=== PATIENT | female | born 1985 | race Hispanic/Latino ===

== ENCOUNTER 2016-11-25 12:46 | Inpatient (IN) | payer BC ==
[2016-11-25 12:50] VITALS: RESP 18; O2SAT 100
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
[2016-11-25 15:41] LABS: BASO # 0.1 K/uL (0.0-0.2); BASO % 1.1 % (0.0-2.0); EOS # 0.3 K/uL (0.0-0.7); EOS % 3.8 % (0.0-4.0); HEMATOCRIT 41.3 % (34.0-47.0); LYMPH # 2.8 K/uL (1.0-4.3); LYMPH % 38.3 % (20.0-40.0); MEAN CELL VOLUME 88.6 fl (81.0-99.0); MEAN CORPUSCULAR HGB CONC 33.8 g/dL (33.0-37.0); MEAN PLATELET VOLUME 8.7 fl (7.2-11.7); MONO # 0.6 K/uL (0.0-0.8); MONO % 7.7 % (0.0-10.0); NEUT # 3.6 K/uL (1.8-7.0); NEUT % 49.1 % (50.0-75.0); NRBC % 0.1 % (0.0-0.0); RED CELL DISTRIBUTION WIDTH 12.5 % (11.5-14.5); WHITE BLOOD COUNT 7.2 K/uL (4.8-10.8)
[2016-11-25 15:53] LABS: RBC URINE 2 /hpf (0-3); URINE BILIRUBIN NEGATIVE (NEGATIVE); URINE BLOOD NEGATIVE (NEGATIVE); URINE COLOR YELLOW (YELLOW); URINE GLUCOSE (UA) NEG (Normal); URINE KETONE NEGATIVE (NEGATIVE); URINE LEUKOCYTE ESTERASE NEG Leu/uL (Negative); URINE PROTEIN NEGATIVE (NEGATIVE); URINE UROBILINOGEN 0.2-1.0 mg/dL (0.2-1.0); WBC URINE 1 /hpf (0-5)
[2016-11-25 16:05] LABS: ALB/GLOB RATIO 1.4 (1.0-2.1); ALCOHOL SERUM < 10 mg/dl (0-10); ALKALINE PHOSPHATASE 37 U/L (38-126); ALT/SGPT 22 U/L (9-52); AST/SGOT 16 U/L (14-36); BILIRUBIN,TOTAL 0.4 mg/dl (0.2-1.3); BLOOD UREA NITROGEN 11 mg/dl (7-17); CALCIUM 9.7 mg/dL (8.4-10.2); CARBON DIOXIDE 23 mmol/L (22-30); CHLORIDE 107 mmol/L (98-107); GFR AFRICAN-AMERICAN > 60; GLUCOSE,RANDOM 95 mg/dL (65-105); POTASSIUM 3.8 MMOL/L (3.6-5.0); SODIUM 143 mmol/l (132-148); TOTAL PROTEIN 7.1 G/DL (6.3-8.2)
[2016-11-25] MEDS ORDERED: Magnesium Hydroxide Susp 30 ml UD PO PRN (18:41)
[2016-11-25] MEDS ORDERED: DiphenhydrAMINE 50 mg/ml Inj IM PRN (18:41)
[2016-11-25] MEDS ORDERED: Alum-Mag Hydrox-Simethicone Susp (30 mL) PO PRN (18:41)
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
[2016-11-26 09:39] LABS: T4 11.4 ug/dl (5.5-11.0)
[2016-11-26 09:52] LABS: THYROID STIMULATING HORMONE 0.77 mIU/ML (0.46-4.68)
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
--- NOTE | 2016-11-26 12:09 | CARD ---
APPROVED REPORT EKG Measurement Heart [id number] <Conclusion> Normal sinus rhythm Normal ECG
[2016-11-26] MEDS ORDERED: Albuterol HFA 90 mcg/actuation (8 g) IH PRN (12:51)
--- NOTE | 2016-11-26 14:03 | CP.PCM.CON ---
History of Present Illness - History of Present Illness History of Present Illness: 31 yo female with history of depression admitted to psyche unit because of worsening depression and anxiety and non-compliance with medications. Review of Systems - Review of Systems All systems: reviewed and no additional remarkable complaints except (aside from those mentioned above, 12 point system review were negative by me) Past Patient History - Tetanus Immunizations Tetanus Immunization: Unknown - Past Medical History & Family History Pertinent Family History: mother has history of depression - Past Social History Smoking Status: Heavy Smoker > 10 Cigarettes Daily Alcohol: None Drugs: Denies - CARDIAC Hx Cardiac Disorders: No (Pt denies) - PULMONARY Hx Asthma: Yes - NEUROLOGICAL HX Cerebrovascular Accident: No (Pt denies) Hx Seizures: No (Pt denies) - HEENT Hx HEENT Problems: No - RENAL Hx Chronic Kidney Disease: Yes Other/Comment: interstitial cystitis - ENDOCRINE/METABOLIC Hx Endocrine Disorders: No - HEMATOLOGICAL/ONCOLOGICAL Hx Cancer: No (Pt denies) Hx Human Immunodeficiency Virus (HIV): No (Pt denies) - INTEGUMENTARY Hx Dermatological Problems: No - MUSCULOSKELETAL/RHEUMATOLOGICAL Hx Musculoskeletal Disorders: No - GASTROINTESTINAL Hx Gastrointestinal Disorders: No - GENITOURINARY/GYNECOLOGICAL Hx Genitourinary Disorders: No Hx Sexually Transmitted Disorders: No (Pt denies) - PSYCHIATRIC Hx Anxiety: Yes Hx Depression: Yes - SURGICAL HISTORY Hx Surgeries: No - ANESTHESIA Hx Anesthesia: No Meds Allergies/Adverse Reactions: Allergies Allergy/AdvReac Type Severity Reaction Status Date / Time No Known Allergies Allergy Verified 11/25/16 12:48 - Medications Medications: Current Medications Acetaminophen (Tylenol 325mg Tab) 650 mg PO Q4 PRN PRN Reason: Pain, moderate (4-7) Al Hydrox/Mg Hydrox/Simethicone (Maalox Plus 30 Ml) 30 ml PO Q4 PRN PRN Reason: Dyspepsia Albuterol (Ventolin Hfa 90 Mcg/Actuation (8 G)) 2 puff IH Q4H PRN PRN Reason: Shortness of Breath Last Admin: 11/26/16 13:46 Dose: 2 puff Diphenhydramine HCl (Benadryl) 50 mg IM Q6 PRN PRN Reason: Extrapyramidal S/S Unable PO Diphenhydramine HCl (Benadryl) 50 mg PO HS PRN PRN Reason: Sleep Haloperidol (Haldol) 5 mg PO Q4 PRN PRN Reason: Agitation Haloperidol Lactate (Haldol) 5 mg IM Q4 PRN PRN Reason: Agitation, Unable to Take PO Lorazepam (Ativan) 1 mg IM Q4 PRN PRN Reason: Anxiety/Agitation,Unable PO Lorazepam (Ativan) 1 mg PO Q4 PRN PRN Reason: Anxiety/Agitation Last Admin: 11/26/16 05:43 Dose: 1 mg Magnesium Hydroxide (Milk Of Magnesia) 30 ml PO HS PRN PRN Reason: Constipation Sertraline HCl (Zoloft) 50 mg PO DAILY BERNICE Last Admin: 11/26/16 13:45 Dose: 50 mg Zolpidem Tartrate (Ambien) 5 mg PO HS PRN PRN Reason: Insomnia Physical Exam - Constitutional Appears: No Acute Distress - Head Exam Head Exam: ATRAUMATIC - Eye Exam Eye Exam: PERRL - ENT Exam ENT Exam: Mucous Membranes Moist - Neck Exam Neck exam: Negative for: Meningismus - Respiratory Exam Respiratory Exam: absent: Rhonchi, Wheezes, Respiratory Distress - Cardiovascular Exam Cardiovascular Exam: REGULAR RHYTHM, +S1, +S2 - GI/Abdominal Exam GI & Abdominal Exam: Soft. absent: Tenderness - Rectal Exam Rectal Exam: Deferred - Extremities Exam Extremities exam: Negative for: pedal edema - Neurological Exam Neurological exam: Alert, Oriented x3 - Psychiatric Exam Psychiatric exam: Normal Affect - Skin Skin Exam: Dry, Intact Results - Vital Signs Recent Vital Signs: Last Vital Signs Temp 97.1 F L 11/26/16 09:00 Pulse 80 11/26/16 09:00 Resp 18 11/26/16 09:00 BP 120/67 11/26/16 09:00 Pulse Ox 100 11/25/16 19:40 - Labs Result Diagrams: 11/25/16 15:16 11/25/16 14:40 Labs: Laboratory Results - last 24 hr 11/25/16 11/25/16 11/25/16 14:40 15:16 15:16 WBC 7.2 RBC 4.66 Hgb 14.0 Hct 41.3 MCV 88.6 MCH 30.0 MCHC 33.8 RDW 12.5 Plt Count 273 MPV 8.7 Neut % (Auto) 49.1 L Lymph % (Auto) 38.3 Bremer % (Auto) 7.7 Eos % (Auto) 3.8 Baso % (Auto) 1.1 Neut # 3.6 Lymph # 2.8 Bremer # 0.6 Eos # 0.3 Baso # 0.1 Sodium 143 Potassium 3.8 Chloride 107 Carbon Dioxide 23 Anion Gap 17 BUN 11 Creatinine 0.9 Est GFR ( Amer) > 60 Est GFR (Non-Af Amer) > 60 Random Glucose 95 Calcium 9.7 Total Bilirubin 0.4 AST 16 ALT 22 Alkaline Phosphatase 37 L Total Protein 7.1 Albumin 4.1 Globulin 3.0 Albumin/Globulin Ratio 1.4 Triglycerides Cholesterol LDL Cholesterol Direct HDL Cholesterol Thyroxine (T4) TSH 3rd Generation Urine Color Urine Clarity Urine pH Ur Specific [place] Urine Protein Urine Glucose (UA) Urine Ketones Urine Blood Urine Nitrate Urine Bilirubin Urine Urobilinogen Ur Leukocyte Esterase Urine RBC (Auto) Urine Microscopic WBC Ur Squamous Epith Cells Urine Opiates Screen Negative Urine Methadone Screen Negative Ur Barbiturates Screen Negative Ur Phencyclidine Scrn Negative Ur Amphetamines Screen Negative U Benzodiazepines Scrn Positive U Oth Cocaine Metabols Negative U Cannabinoids Screen Negative Alcohol, Quantitative < 10 11/25/16 11/26/16 16:30 08:30 WBC RBC Hgb Hct MCV MCH MCHC RDW Plt Count MPV Neut % (Auto) Lymph % (Auto) Bremer % (Auto) Eos % (Auto) Baso % (Auto) Neut # Lymph # Bremer # Eos # Baso # Sodium Potassium Chloride Carbon Dioxide Anion Gap BUN Creatinine Est GFR ( Amer) Est GFR (Non-Af Amer) Random Glucose Calcium Total Bilirubin AST ALT Alkaline Phosphatase Total Protein Albumin Globulin Albumin/Globulin Ratio Triglycerides 109 Cholesterol 191 LDL Cholesterol Direct 93 HDL Cholesterol 65 Thyroxine (T4) 11.4 H TSH 3rd Generation 0.77 Urine Color Yellow Urine Clarity Clear Urine pH 6.0 Ur Specific [place] 1.023 Urine Protein Negative Urine Glucose (UA) Neg Urine Ketones Negative Urine Blood Negative Urine Nitrate Negative Urine Bilirubin Negative Urine Urobilinogen 0.2-1.0 Ur Leukocyte Esterase Neg Urine RBC (Auto) 2 Urine Microscopic WBC 1 Ur Squamous Epith Cells 1 Urine Opiates Screen Urine Methadone Screen Ur Barbiturates Screen Ur Phencyclidine Scrn Ur Amphetamines Screen U Benzodiazepines Scrn U Oth Cocaine Metabols U Cannabinoids Screen Alcohol, Quantitative Assessment & Plan (1) Depression Status: Acute Comment: psyche is managing (2) Asthma Status: Acute Comment: Albuterol inhaler 2 puffs @ 4hrs prn for wheezing/SOB
[2016-11-26] MEDS ORDERED: Apap-Butalbital-Caffeine 325-50-40mg Tab PO STA (19:01)
[2016-11-27 09:45] VITALS: BP 114/68; PULSE 67; TEMP 97.1
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
== END 2016-11-27 12:00 | disposition home or self-care (01) | DRG 881 ==
LOC: H.ER 12:46 → H.ERHOLD 17:18 → H.PSYCH 18:26
PROVIDERS: ADMIT Psychiatry & Neurology Psychiatry; ATTEND Psychiatry & Neurology Psychiatry
PROC: GZ51ZZZ Individual Psychotherapy, Behavioral (ICD-10-PCS; principal; 2016-11-25)
PROC: GZHZZZZ Group Psychotherapy (ICD-10-PCS; 2016-11-25)
DX: F32.9 Major depressive disorder, single episode, unspecified (principal); N30.10 Interstitial cystitis (chronic) without hematuria; R45.851 Suicidal ideations; F13.10 Sedative, hypnotic or anxiolytic abuse, uncomplicated; F41.9 Anxiety disorder, unspecified; F60.81 Narcissistic personality disorder; G47.00 Insomnia, unspecified; J45.909 Unspecified asthma, uncomplicated; N18.9 Chronic kidney disease, unspecified; Z79.899 Other long term (current) drug therapy; Z81.8 Family history of other mental and behavioral disorders; F17.210 Nicotine dependence, cigarettes, uncomplicated; Z91.14 Patient's other noncompliance with medication regimen; Z91.19 Patient's noncompliance with other medical treatment and regimen